=== PATIENT | female | born 1985 | race Caucasian/White ===

== ENCOUNTER 2023-12-21 10:38 | Emergency (ER) | payer BC ==
--- NOTE | 2023-12-21 11:22 | RAD REPORT ---
EXAMINATION: XR RIGHT SHOUDLER CLINICAL INDICATION: Female, 38 years old. PAIN RIGHT TECHNIQUE: Multiple views of the right shoulder were obtained. COMPARISON: No prior exam. FINDINGS: Mildly displaced fracture of the mid shaft right clavicle. No dislocation.
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
--- NOTE | 2023-12-21 11:23 | RAD REPORT ---
EXAM:Clavicle Right HISTORY: PAIN RIGHT COMPARISON: None IMPRESSION: Mildly to moderately displaced fracture mid right clavicle with tiny ossific fragment see n. No dislocation.
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
[2023-12-21] MEDS ORDERED: HYDROCODONE/APAP 7.5/325 MG TAB ONE (11:42)
[2023-12-21 12:49] VITALS: TEMP 97.8; O2SAT 99
[2023-12-21 12:51] VITALS: BP 132/78
== END 2023-12-21 11:57 | disposition home or self-care (01) ==
LOC: ER 10:38
DX: S42.011A Anterior displaced fracture of sternal end of right clavicle, initial encounter for closed fracture (principal); V47.5XXA Car driver injured in collision with fixed or stationary object in traffic accident, initial encounter
CPT/HCPCS: 71045; 99284